=== PATIENT | male | born 1960 | race Caucasian/White ===

== ENCOUNTER 2021-11-07 15:34 | Outpatient (CLI) | payer BC, SELFPAY ==
[2021-11-07 16:24] LABS: Alanine Aminotransferase 40 U/L (6-50); Albumin Level 4.6 g/dL (3.5-5.1); Alkaline Phosphatase 65 U/L (38-126); Aspartate Amino Transferase 28 U/L (17-59); Bilirubin,Total 1.2 mg/dL (0.2-1.3)
[2021-11-07 16:27] LABS: Hemoglobin A1C 5.6 % (<5.7)
== END 2021-11-07 15:35 | disposition home or self-care (01) ==
LOC: ANHLAB 15:36
PROVIDERS: PCP Family Medicine; Visit Provider Podiatrist Foot & Ankle Surgery
DX: B35.1 Tinea unguium (principal); E11.49 Type 2 diabetes mellitus with other diabetic neurological complication
CPT/HCPCS: 36415; 80076; 83036

== ENCOUNTER 2022-02-20 15:53 | Outpatient (CLI) | payer BC, SELFPAY ==
[2022-02-20 16:44] LABS: Creatinine Urine 81.4 mg/dL
[2022-02-20 16:47] LABS: Alanine Aminotransferase 44 U/L (6-50); Albumin Level 4.3 g/dL (3.5-5.1); Alkaline Phosphatase 74 U/L (38-126); Anion Gap 8 mmol/L (8-16); Aspartate Amino Transferase 33 U/L (17-59); Bilirubin,Total 0.6 mg/dL (0.2-1.3); Blood Urea Nitrogen 18 mg/dL (9-20); Carbon Dioxide 27 mmol/L (22-30); Chloride 104 mmol/L (98-107); Cholesterol 144 mg/dL (0-200); Estimated Glomerular Filt Rate > 60; Glucose 161 mg/dL (65-110); HDL Direct 53 mg/dL; Sodium 139 mmol/L (137-145); Triglycerides 269 mg/dL (<150)
[2022-02-20 16:49] LABS: MALB Creatinine Ratio 14.1 mg/g (0-30); Microalbumin Urine Random 11.5 mg/L (0-16.7)
[2022-02-20 16:58] LABS: LDL Cholesterol Direct 65 mg/dL
[2022-02-20 17:36] LABS: Hemoglobin A1C 5.8 % (<5.7)
== END 2022-02-20 15:54 | disposition home or self-care (01) ==
LOC: ANHLAB 15:58
PROVIDERS: PCP Family Medicine; Visit Provider Family Medicine
DX: E11.40 Type 2 diabetes mellitus with diabetic neuropathy, unspecified (principal); E78.5 Hyperlipidemia, unspecified
CPT/HCPCS: 36415; 80053; 80061; 82043; 83036

== ENCOUNTER 2022-04-24 15:07 | Outpatient (CLI) | payer BC, SELFPAY ==
[2022-04-24 16:05] LABS: Alanine Aminotransferase 43 U/L (6-50); Albumin Level 4.8 g/dL (3.5-5.1); Alkaline Phosphatase 63 U/L (38-126); Anion Gap 5 mmol/L (8-16); Aspartate Amino Transferase 39 U/L (17-59); Bilirubin,Total 1.3 mg/dL (0.2-1.3); Blood Urea Nitrogen 16 mg/dL (9-20); Calcium 9.1 mg/dL (8.4-10.2); Carbon Dioxide 31 mmol/L (22-30); Chloride 100 mmol/L (98-107); Cholesterol 163 mg/dL (0-200); Estimated Glomerular Filt Rate > 60; Glucose 77 mg/dL (65-110); HDL Direct 62 mg/dL; Potassium 3.8 mmol/L (3.4-5.0); Sodium 136 mmol/L (137-145); Triglycerides 175 mg/dL (<150)
[2022-04-24 16:15] LABS: LDL Cholesterol Direct 70 mg/dL
[2022-04-24 16:23] LABS: Creatinine Urine 109.4 mg/dL
[2022-04-24 16:27] LABS: MALB Creatinine Ratio 9.3 mg/g (0-30); Microalbumin Urine Random 10.2 mg/L (0-16.7)
[2022-04-24 16:48] LABS: Hemoglobin A1C 6.2 % (<5.7)
== END 2022-04-24 15:08 | disposition home or self-care (01) ==
LOC: ANHLAB 15:12
PROVIDERS: PCP Family Medicine; Visit Provider Family Medicine
DX: E11.40 Type 2 diabetes mellitus with diabetic neuropathy, unspecified (principal); E78.5 Hyperlipidemia, unspecified; I10 Essential (primary) hypertension
CPT/HCPCS: 36415; 80053; 80061; 82043; 83036

== ENCOUNTER 2022-08-31 15:01 | Outpatient (CLI) | payer BC, SELFPAY ==
[2022-08-31 15:32] LABS: Alanine Aminotransferase 45 U/L (6-50); Albumin Level 4.4 g/dL (3.5-5.1); Alkaline Phosphatase 63 U/L (38-126); Anion Gap 8 mmol/L (8-16); Aspartate Amino Transferase 30 U/L (17-59); Bilirubin,Total 1.1 mg/dL (0.2-1.3); Blood Urea Nitrogen 18 mg/dL (9-20); Carbon Dioxide 25 mmol/L (22-30); Chloride 106 mmol/L (98-107); Cholesterol 153 mg/dL (0-200); Estimated Glomerular Filt Rate > 60; Glucose 107 mg/dL (65-110); HDL Direct 60 mg/dL; Potassium 3.9 mmol/L (3.4-5.0); Sodium 139 mmol/L (137-145); Triglycerides 128 mg/dL (<150)
[2022-08-31 15:43] LABS: LDL Cholesterol Direct 70 mg/dL
[2022-08-31 15:48] LABS: Creatinine Urine 74.4 mg/dL
[2022-08-31 15:53] LABS: MALB Creatinine Ratio 13.7 mg/g (0-30); Microalbumin Urine Random 10.2 mg/L (0-16.7)
[2022-08-31 20:50] LABS: Hemoglobin A1C 6.3 % (<5.7)
== END 2022-08-31 15:02 | disposition home or self-care (01) ==
LOC: ANHLAB 15:03
PROVIDERS: PCP Family Medicine; Visit Provider Family Medicine
DX: E11.40 Type 2 diabetes mellitus with diabetic neuropathy, unspecified (principal); E78.5 Hyperlipidemia, unspecified; I10 Essential (primary) hypertension
CPT/HCPCS: 36415; 80053; 80061; 82043; 83036

== ENCOUNTER 2022-11-27 15:04 | Outpatient (CLI) | payer BC, SELFPAY ==
[2022-11-27 16:12] LABS: Alanine Aminotransferase 42 U/L (6-50); Albumin Level 4.2 g/dL (3.5-5.1); Alkaline Phosphatase 61 U/L (38-126); Aspartate Amino Transferase 37 U/L (17-59); Bilirubin,Total 0.7 mg/dL (0.2-1.3)
== END 2022-11-27 15:05 | disposition home or self-care (01) ==
PROVIDERS: PCP Family Medicine; Visit Provider Podiatrist Foot & Ankle Surgery
DX: B35.1 Tinea unguium (principal)
CPT/HCPCS: 36415; 80076

== ENCOUNTER 2022-11-30 15:22 | Outpatient (CLI) | payer BC, SELFPAY ==
[2022-11-30 23:12] LABS: Hemoglobin A1C 5.8 % (<5.7)
== END 2022-11-30 15:23 | disposition home or self-care (01) ==
PROVIDERS: PCP Family Medicine; Visit Provider Podiatrist Foot & Ankle Surgery
DX: E11.9 Type 2 diabetes mellitus without complications (principal)
CPT/HCPCS: 36415; 83036

== ENCOUNTER 2023-01-01 15:24 | Outpatient (CLI) | payer BC, SELFPAY ==
[2023-01-01 17:10] LABS: Alanine Aminotransferase 41 U/L (6-50); Albumin Level 4.3 g/dL (3.5-5.1); Alkaline Phosphatase 54 U/L (38-126); Aspartate Amino Transferase 36 U/L (17-59); Bilirubin,Total 0.7 mg/dL (0.2-1.3)
== END 2023-01-01 15:25 | disposition home or self-care (01) ==
PROVIDERS: PCP Family Medicine; Visit Provider Podiatrist Foot & Ankle Surgery
DX: B35.1 Tinea unguium (principal)
CPT/HCPCS: 36415; 80076

== ENCOUNTER → 2023-05-25 10:41 | Outpatient (CLI) | payer BC, SELFPAY ==
--- NOTE | ~2023-05-25 | CT_ITS ---
Non-contrast Head CT History: Headache Technique: Axial non-contrast imaging of the brain was performed. Dose reduction technique was used on this scan by utilizing automated exposure control and iterative reconstruction technique. The dose -length product (DLP) was 599.57 mGy-cm. Findings: There is no evidence of intracranial hemorrhage, mass lesion, or acute infarct. Brain par enchyma appears normal. The ventricles and subarachnoid spaces are normal in size. The calvarium ap pears normal. The visualized paranasal sinuses and mastoid air cells are clear. Impression: No significant abnormality seen. Reviewed, dictated and finalized at location . WAY ADMINISTRATIVE ENGINEER Impression: No significant abnormality seen.
== END ==
PROVIDERS: PCP Family Medicine; Visit Provider Physician Assistant
DX: R51.9 Headache, unspecified (principal)
CPT/HCPCS: 70450

== ENCOUNTER 2023-12-31 15:01 | Outpatient (CLI) | payer BC, SELFPAY ==
[2023-12-31 16:03] LABS: Alanine Aminotransferase 39 U/L (6-50); Albumin Level 4.4 g/dL (3.5-5.1); Alkaline Phosphatase 60 U/L (38-126); Anion Gap 9 mmol/L (4-12); Aspartate Amino Transferase 35 U/L (17-59); Bilirubin,Total 1.1 mg/dL (0.2-1.3); Blood Urea Nitrogen 16 mg/dL (9-20); Calcium 9.4 mg/dL (8.4-10.2); Carbon Dioxide 26 mmol/L (22-30); Chloride 103 mmol/L (98-107); Cholesterol 142 mg/dL (0-200); Estimated Glomerular Filt Rate > 60; Glucose 131 mg/dL (65-110); HDL Direct 73 mg/dL; Potassium 3.9 mmol/L (3.4-5.0); Sodium 138 mmol/L (137-145); Triglycerides 80 mg/dL (<150)
[2023-12-31 16:07] LABS: Creatinine Urine 56.1 mg/dL
[2023-12-31 16:11] LABS: MALB Creatinine Ratio 14.8 mg/g (0-30); Microalbumin Urine Random 8.3 mg/L (0-16.7)
[2023-12-31 16:13] LABS: LDL Cholesterol Direct 52 mg/dL
[2023-12-31 16:47] LABS: Hemoglobin A1C 6.3 % (<5.7)
== END 2023-12-31 15:02 | disposition home or self-care (01) ==
LOC: ANHLAB 15:03
PROVIDERS: PCP Family Medicine; Visit Provider Family Medicine
DX: E11.3299 Type 2 diabetes mellitus with mild nonproliferative diabetic retinopathy without macular edema, unspecified eye (principal); E78.2 Mixed hyperlipidemia; I10 Essential (primary) hypertension
CPT/HCPCS: 36415; 80053; 80061; 82043; 83036

== ENCOUNTER 2024-03-24 02:31 | Day surgery (SDC) | payer BC, SELFPAY ==
[2024-03-17 10:26] VITALS: BMI 28.7
[2024-03-24 07:16] VITALS: BP 137/70; PULSE 54; RESP 16; TEMP 36; O2SAT 99; BMI 28.6
[2024-03-24 07:27] LABS: Glucose Point of Care 135 mg/dl (65-105)
[2024-03-24] MEDS: LACTATED RINGERS 1,000 ML 150 ML IV CONT (07:31)
--- NOTE | 2024-03-24 08:23 | PM.IMHP ---
H&P: HPI History of Present Illness Date/Time: 03/24/24 08:23 Chief Complaint: History of colon polyps Narrative: The patient has a history of colonic polyps, the last colonoscopy was 5 years ago. 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 Type 2 diabetes mellitus with diabetic neuropathy, unspecified Surgical History Surgical History History of nasal surgery 2018 History of tonsillectomy and adenoidectomy 1970 Family History Family History Father Heart disease Mother Heart disease Grandparent Diabetes mellitus Hypertension Other Family history of coronary artery disease Social History Social History (Updated 01/04/24 @ 11:33 by Ashley Rebolledo MA) Smoking packs per day: 1 Smoking cigarettes per day: 20.0 Smoking status: Former smoker Tobacco type: cigarettes Second hand tobacco smoke exposure: No Smoking end date: 05/14/83 Alcohol intake: current Drinks per week: 7 Substance use: never Substance use type: does not use Do You Feel Safe in your Home?: Yes Lack of Transportation: No Lack of Food: Never True Current Housing: I Have Housing Concerned About Future Housing: No Difficulty Paying Gas/Electric Bills: No Difficulty Paying for Meds: No Currently Unemployed: No Education: Trade/Vocational Certificate Difficulty w/ Childcare or Family Care: No Living arrangements: with family Occupation/Education: occupation Gender identity (if verbalized by the patient): Male Sexual Orientation (if Verbalized by the Patient): Straight or Heterosexual Meds Home Medications and Allergies Home Medications Medication Instructions Recorded Confirmed Type melatonin 10 mg capsule 10 mg PO QHS 09/07/22 03/24/24 History kobhlhauacgq-ejwqklbv-kfikgb 1 tablet PO DAILY 09/07/22 03/24/24 History tablet (Multivitamin 50 Plus tablet) metformin 500 mg tablet See Rx Instructions .Route 11/26/23 03/24/24 Rx .COMPLEX #360 tabs atorvastatin 20 mg tablet See Rx Instructions .Route 01/04/24 03/24/24 Rx .COMPLEX #90 tabs dapagliflozin propanediol 10 mg 10 mg PO DAILY #90 tabs 01/04/24 03/24/24 Rx tablet (Farxiga) glipizide 5 mg tablet, extended See Rx Instructions .Route 01/04/24 03/24/24 Rx release 24 hr .COMPLEX #90 tabs lisinopril 10 mg tablet See Rx Instructions .Route 01/04/24 03/24/24 Rx .COMPLEX #90 tabs valerian root 500 mg capsule 1,000 mg PO QHS PRN Sleep 01/04/24 03/24/24 History Allergies Allergy/AdvReac Type Severity Reaction Status Date / Time No Known Allergies Allergy Verified 03/24/24 07:15 Vital Signs Vital Signs - 24 hr 03/24/24 07:16 Temperature 96.8 F L Pulse Rate 54 L Respiratory Rate 16 Blood Pressure 137/70 Pulse Oximetry 99 Oxygen Delivery Room Air Exam Const: General: cooperative and healthy appearing Resp: Effort & Inspection: normal respiratory effort and able to speak in complete sentences Auscultation: clear to auscultation bilaterally Cardio: Rate: regular rate Rhythm: regular rhythm GI: Inspection: normal to inspection GI Palp: No No hepatosplenomegaly present Auscultation: normal bowel sounds Rectal Exam: deferred Skin: General skin exam: normal color Psych: Appearance: grossly normal Mental Status: mental status grossly normal Assessment and Plan Assessment and plan (1) Personal history of colonic polyps: Code(s): Z86.010 - Personal history of colon polyps Status: Acute Plan The patient is deemed a good candidate for the procedure. Consent signed. Will proceed.
--- NOTE | 2024-03-24 08:26 | P.PNAN_ITS ---
Anes - Initial Pre Proc Eval Procedure: Operation Date: 03/24/24 08:30 Proposed Procedures p Screening Colonoscopy - Rubén Raymundo MD Date/Time: 03/24/24 08:26 Surgeon: Rubén Raymundo MD Pre Op Diagnosis: h/o colon polyps Pre Op Diagnosis: hx colon polyps Patient Data Age: 63 Gender: M Height: 1.83 m Weight: 95.9 kg Last Vital Signs Temp 36.0 C L 03/24/24 07:16 Pulse 54 L 03/24/24 07:16 Resp 16 03/24/24 07:16 BP 137/70 03/24/24 07:16 Pulse Ox 99 03/24/24 07:16 O2 Del Method Room Air 03/24/24 07:16 Allergies Allergy/AdvReac Type Severity Reaction Status Date / Time No Known Allergies Allergy Verified 03/24/24 07:15 Home Medications Medication Instructions Recorded Confirmed Type melatonin 10 mg capsule 10 mg PO QHS 09/07/22 03/24/24 History wvunvszpcmre-hwfgmzqk-ywbshw 1 tablet PO DAILY 09/07/22 03/24/24 History tablet (Multivitamin 50 Plus tablet) metformin 500 mg tablet See Rx Instructions .Route 11/26/23 03/24/24 Rx .COMPLEX #360 tabs atorvastatin 20 mg tablet See Rx Instructions .Route 01/04/24 03/24/24 Rx .COMPLEX #90 tabs dapagliflozin propanediol 10 mg 10 mg PO DAILY #90 tabs 01/04/24 03/24/24 Rx tablet (Farxiga) glipizide 5 mg tablet, extended See Rx Instructions .Route 01/04/24 03/24/24 Rx release 24 hr .COMPLEX #90 tabs lisinopril 10 mg tablet See Rx Instructions .Route 01/04/24 03/24/24 Rx .COMPLEX #90 tabs valerian root 500 mg capsule 1,000 mg PO QHS PRN Sleep 01/04/24 03/24/24 History Laboratory Tests 03/24/24 07:23 POC Capillary Glucose 135 H mg/dl (65-105) Patient hx anesthesia problems: none Family hx anesthesia problems: none Results Review: All pre-operative results and documents have been reviewed as part of the pre- operative evaluation. 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 Type 2 diabetes mellitus with diabetic neuropathy, unspecified Surgical History Surgical History History of nasal surgery 2018 History of tonsillectomy and adenoidectomy 1970 Family History Family History Father Heart disease Mother Heart disease Grandparent Diabetes mellitus Hypertension Other Family history of coronary artery disease Social History Social History Smoking packs per day: 1 Smoking cigarettes per day: 20.0 Smoking status: Former smoker Tobacco type: cigarettes Second hand tobacco smoke exposure: No Smoking end date: 05/14/83 Alcohol intake: current Drinks per week: 7 Substance use: never Substance use type: does not use Do You Feel Safe in your Home?: Yes Lack of Transportation: No Lack of Food: Never True Current Housing: I Have Housing Concerned About Future Housing: No Difficulty Paying Gas/Electric Bills: No Difficulty Paying for Meds: No Currently Unemployed: No Education: Trade/Vocational Certificate Difficulty w/ Childcare or Family Care: No Living arrangements: with family Occupation/Education: occupation Gender identity (if verbalized by the patient): Male Sexual Orientation (if Verbalized by the Patient): Straight or Heterosexual Anes - Eval Final PreProcedure Day of Procedure 03/24/24 08:26 Patient weight: overweight Heart: regular rate and rhythm Lungs: clear to auscultation Airway: Mallampati scale class II Neurological: alert and oriented Last oral intake: >/= 8 hours ASA classification: II Emergent: no Anesthetic plan: proceed Anesthesia type and monitoring: general GIVS and standard monitoring Results Review: All pre-operative results and documents have been reviewed as part of the pre- operative evaluation. Informed Consent: The patient's anesthetic plan and its attendant risks and benefits were discussed with the patient/family/POA. Questions were solicited and answers provided to the satisfaction of the patient/family/POA.
[2024-03-24 08:59] VITALS: BP 130/68; PULSE 58; RESP 19; O2SAT 99
[2024-03-24 09:09] VITALS: BP 125/93; PULSE 54; RESP 16; O2SAT 100
[2024-03-24 09:19] VITALS: BP 145/71; PULSE 52; RESP 20; O2SAT 100
== END 2024-03-24 09:28 | disposition home or self-care (01) ==
PROVIDERS: PCP Family Medicine; Visit Provider Internal Medicine Gastroenterology
PROC: 0DJD8ZZ Inspection of Lower Intestinal Tract, Via Natural or Artificial Opening Endoscopic (ICD-10-PCS; CPT 45378; principal; 2024-03-24 08:30)
DX: Z12.11 Encounter for screening for malignant neoplasm of colon (principal); D12.0 Benign neoplasm of cecum; D12.3 Benign neoplasm of transverse colon; D12.4 Benign neoplasm of descending colon; D12.5 Benign neoplasm of sigmoid colon; Z79.84 Long term (current) use of oral hypoglycemic drugs; E11.40 Type 2 diabetes mellitus with diabetic neuropathy, unspecified; E11.319 Type 2 diabetes mellitus with unspecified diabetic retinopathy without macular edema; I10 Essential (primary) hypertension; E78.5 Hyperlipidemia, unspecified; Z87.891 Personal history of nicotine dependence
CPT/HCPCS: 45385; 82948; 88305; J2003; J2704; J7120

== ENCOUNTER 2024-12-01 15:17 | Outpatient (CLI) | payer BC, SELFPAY ==
--- OUTSIDE RECORDS SUMMARY | 2024-12-01 15:21 | XMS_ITS | Patient Health Record ---
Author Organization [facility] Address [address] [place], [place] [id number] Care Team Providers Care Dimensional Inspector Name Role Phone MAIKEL PARISH Unavailable [phone] Marily Maikel Unavailable Unavailable Allergies No Known Allergies Reason For Referral No Information Medications Medication SIG (Take, Route, Frequency, Duration) Notes Start Date End Date Status Melatonin 10 MG Oral Capsule ORAL melatonin 10 MG Oral CapsuleOriginal Medicationmelatonin 10 MG Oral Capsule *Reorder from [employer] for eRx and Interaction Alerts* 0 Active diphenhydramine hydrochloride 50 MG Oral Capsule ORAL diphenhydramine hydrochlorid e 50 MG Oral CapsuleOriginal Medicationdiphenhydramine hydrochloride 50 MG Oral Capsule *Reorder from [employer] for eRx and Interaction Alerts* 0 Active Medrol Dosepak ORAL Medrol DosepakOr iginal MedicationMedrol Dosepak *Reorder from [employer] for eRx and Interaction Alerts* 0 Active terbinafine 250 MG Oral Tablet ORAL terbinafine 250 MG Oral TabletOriginal Medicationterbinafine 250 MG Oral Tablet *Reorder from [employer] for eRx and Interaction Alerts* 2 Active Ciclopirox 8 % APPLY 1-2 DROPS TOPICALLY TO NAILS DAILY; Duration: 30 Active Vital Signs Height-cm 182.88 cm 10/27/2024 Weight-kg 102.06 kg 10/27/2024 Height 72.00 in 10/27/2024 Weight 225 lbs 10/27/2024 BMI 30.51 kg/m2 10/27/2024 Encounters Encounter Location Date Provider Diagnosis [facility] [place] [address] [place] [address] [id number] 12/03/2023 MAIKEL SNOOK Pain in left ankle a nd joints of left foot M25.572 ; Primary osteoarthritis, left ankle and foot M19.072 ; Tinea unguium B35.1 ; Other hammer toe(s) (acquired), left foot M20.42 and Acquired keratosis [keratoderma] palmaris et plantaris L85.1 [facility] [place] [address] [place] [address] [id number] 04/14/2024 MAIKEL SNOOK Pain in left ankle a nd joints of left foot M25.572 ; Primary osteoarthritis, left ankle and foot M19.072 ; Other hammer toe(s) (acquired), left foot M20.42 ; Acquired keratosis [keratoderma] palmaris et plantaris L85.1 and Plantar fascial fibromatosis M72.2 [facility] [address] [place] [address] [id number] 10/27/2024 MAIKEL SNOOK Primary osteoarthritis, left ankle and foot M19.072 ; Pain in left ankle and joints of left foot M25.572 and Acquired keratosis [keratoderma] palmaris et plantaris L85.1 Assessments Encounter Date Diagnosis (ICD Code) Assessment Notes Treatment Notes Treatment Clinical Notes Section Notes 12/03/2023 Primary osteoarthritis, left ankle and foot (ICD-10 - M19.072) 12/03/2023 Pain in left ankle and joints of left foot (ICD-10 - M25.572) Sinus Tarsi Syndrome: I discussed anti-inflammatory treatment options and various means of immobilization with the patient. I educated the patient on icing and stretching, supportive shoegear, and the use of orthotic devices and bracing. Kenalog Injection: Following skin prep, a total of 3 ccs of a 1-1-1 mix of 0.5% marcaine plain, 1% lidocaine plain, and Kenalog was injected to the left sinus tarsi. Orthotic Continue: Advised patient to continue to wear orthotic devices. 04/14/2024 Primary osteoarthritis, left ankle and foot (ICD-10 - M19.072) 04/14/2024 Pain in left ankle and joints of left foot (ICD-10 - M25.572) Sinus Tarsi Syndrome: I discussed anti-inflammatory treatment options and various means of immobilization with the patient. I educated the patient on icing and stretching, supportive shoegear, and the use of orthotic devices and bracing. Kenalog Injection: Following skin prep, a total of 3 ccs of a 1-1-1 mix of 0.5% marcaine plain, 1% lidocaine plain, and Kenalog was injected to the left sinus tarsi. Orthotic Continue: Advised patient to continue to wear orthotic devices. 10/27/2024 Primary osteoarthritis, left ankle and foot (ICD-10 - M19.072) 10/27/2024 Pain in left ankle and joints of left foot (ICD-10 - M25.572) Sinus Tarsi Syndrome: I discussed anti-inflammatory treatment options and various means of immobilization with the patient. I educated the patient on icing and stretching, supportive shoegear, and the use of orthotic devices and bracing. Kenalog Injection: Following skin prep, a total of 3 ccs of a 1-1-1 mix of 0.5% marcaine plain, 1% lidocaine plain, and Kenalog was injected to the left sinus tarsi. Orthotic Continue: Advised patient to continue to wear orthotic devices. 04/14/2024 Other hammer toe(s) (acquired), left foot (ICD-10 - M20.42) Hammertoe Deformity: Discussed various treatments for hammer toes with the patient . Discussed conservative care consisting of padding, wider shoes, anti-inflammatorie s, and orthotics. Discussed surgical treatment options and answered all questions about the intra-operative and post-operative treatment course. 12/03/2023 Tinea unguium (ICD-10 - B35.1) FUNGAL TOENAILS: Discussed various treatment options for fungal toenails including debridement, topical antifungals, oral antifungals, toenail avulsion, or toenail matrixectomy. NAIL DEBRIDEMENT: Nails 1-5 Bilateral were debrided extensively with nail nippers and emery board, reducing length and girth to pink healthy tissue with any subungual debris and necrotic tissue removed 12/03/2023 Other hammer toe(s) (acquired), left foot (ICD-10 - M20.42) Hammertoe Deformity: Discussed various treatments for hammer toes with the patient . Discussed conservative care consisting of padding, wider shoes, anti-inflammatorie s, and orthotics. Discussed surgical treatment options and answered all questions about the intra-operative and post-operative treatment course. 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 10/27/2024 Acquired keratosis [keratoderma] palmaris et plantaris (ICD-10 - L85.1) Emollient: Recommend that the patient use an emollient such as dckl-ntd-khlzzgt Eucerin cream, Vanicream, or other lotion to the affected area. 04/14/2024 Plantar fascial fibromatosis (ICD-10 - M72.2) Plantar Fascitis: I discussed anti-inflammatory treatment options and various means of pronation control with the patient. I educated the patient on icing and stretching, supportive shoegear, and the use of orthotic devices. Kenalog Injection: Following skin prep, a total of 3 ccs of a 1-1-1 mix of 0.5% marcaine plain, 1% lidocaine plain, and Kenalog was injected to the left and right heel 12/03/2023 Acquired keratosis [keratoderma] palmaris et plantaris (ICD-10 - L85.1) Emollient: Recommend that the patient use an emollient such as gfuz-znh-lwmktht Eucerin cream, Vanicream, or other lotion to the affected area. Plan Of Treatment Pending Test Test Name Order Date Hemoglobin A1c 11/27/2022 Liver Function Test (LFT) 01/01/2023 Liver Function Test (LFT) 11/27/2022 Insurance Providers Payer Name Payer Address Payer Phone Subscriber Number Group Number Insured Name Patient Relationship to Insured Coverage Start Date Coverage End Date [facility] ([facility]) ATTN CLAIMS [address] [place] [address] [id number] EDUARDO MORENO Self - patient is the insured
[2024-12-01 16:16] LABS: Alanine Aminotransferase 36 U/L (6-50); Albumin Level 4.2 g/dL (3.5-5.1); Alkaline Phosphatase 67 U/L (38-126); Anion Gap 10 mmol/L (4-12); Aspartate Amino Transferase 35 U/L (17-59); Bilirubin,Total 0.9 mg/dL (0.2-1.3); Blood Urea Nitrogen 15 mg/dL (9-20); Calcium 9.3 mg/dL (8.4-10.2); Carbon Dioxide 23 mmol/L (22-30); Chloride 104 mmol/L (98-107); Cholesterol 125 mg/dL (0-200); Estimated Glomerular Filt Rate > 60; Glucose 167 mg/dL (65-110); HDL Direct 60 mg/dL; Potassium 4.2 mmol/L (3.4-5.0); Sodium 137 mmol/L (137-145); Total Protein 7.0 g/dL (6.3-8.2); Triglycerides 232 mg/dL (<150)
[2024-12-01 16:23] LABS: Hemoglobin A1C 6.6 % (<5.7)
== END 2024-12-01 15:18 | disposition home or self-care (01) ==
PROVIDERS: PCP Family Medicine; Visit Provider Family Medicine
DX: E11.40 Type 2 diabetes mellitus with diabetic neuropathy, unspecified (principal); I10 Essential (primary) hypertension; E78.2 Mixed hyperlipidemia
CPT/HCPCS: 36415; 80053; 80061; 83036

== ENCOUNTER 2025-01-02 14:57 | Outpatient (CLI) | payer BC, SELFPAY ==
--- OUTSIDE RECORDS SUMMARY | 2025-01-02 15:01 | XMS_ITS | Patient Health Record ---
Author Organization [facility] Address [address] [place], [place] [id number] Care Team Providers Care Raw Material Handler Name Role Phone MAIKEL PARISH Unavailable [phone] Marily Maikel Unavailable Unavailable Allergies No Known Allergies Reason For Referral No Information Medications Medication SIG (Take, Route, Frequency, Duration) Notes Start Date End Date Status Melatonin 10 MG Oral Capsule ORAL melatonin 10 MG Oral CapsuleOriginal Medicationmelatonin 10 MG Oral Capsule *Reorder from [employer] for eRx and Interaction Alerts* 0 Active diphenhydramine hydrochloride 50 MG Oral Capsule ORAL diphenhydramine hydrochlorid e 50 MG Oral CapsuleOriginal Medicationdiphenhydramine hydrochloride 50 MG Oral Capsule *Reorder from [employer] for eRx and Interaction Alerts* 0 Active Medrol Dosepak ORAL Medrol DosepakOr iginal MedicationMedrol Dosepak *Reorder from [employer] for eRx and Interaction Alerts* 0 Active terbinafine 250 MG Oral Tablet ORAL terbinafine 250 MG Oral TabletOriginal Medicationterbinafine 250 MG Oral Tablet *Reorder from [employer] for eRx and Interaction Alerts* 2 Active Ciclopirox 8 % APPLY 1-2 DROPS TOPICALLY TO NAILS DAILY; Duration: 30 Active Vital Signs Height-cm 182.88 cm 10/27/2024 Weight-kg 102.06 kg 10/27/2024 Height 72.00 in 10/27/2024 Weight 225 lbs 10/27/2024 BMI 30.51 kg/m2 10/27/2024 Encounters Encounter Location Date Provider Diagnosis [facility] [place] [address] [place] [address] [id number] 04/14/2024 MAIKEL SNOOK Pain in left ankle a nd joints of left foot M25.572 ; Primary osteoarthritis, left ankle and foot M19.072 ; Other hammer toe(s) (acquired), left foot M20.42 ; Acquired keratosis [keratoderma] palmaris et plantaris L85.1 and Plantar fascial fibromatosis M72.2 [facility] [place] [address] [place] [address] [id number] 10/27/2024 MAIKEL SNOOK Primary osteoarthritis, left ankle and foot M19.072 ; Pain in left ankle and joints of left foot M25.572 and Acquired keratosis [keratoderma] palmaris et plantaris L85.1 Assessments Encounter Date Diagnosis (ICD Code) Assessment Notes Treatment Notes Treatment Clinical Notes Section Notes 04/14/2024 Primary osteoarthritis, left ankle and foot [...] the patient use an emollient such as rqzv-jnc-emaianr Eucerin cream, Vanicream, or other lotion to the affected area. 10/27/2024 Acquired keratosis [keratoderma] palmaris et plantaris (ICD-10 - L85.1) Emollient: Recommend that the patient use an emollient such as rskf-swu-hztdqya Eucerin cream, Vanicream, or other lotion to [...] injected to the left and right heel Plan Of Treatment Pending Test Test Name Order Date Hemoglobin A1c 11/27/2022 Liver Function Test (LFT) 01/01/2023 Liver Function Test (LFT) 11/27/2022 Insurance Providers Payer Name Payer Address Payer Phone Subscriber Number Group Number Insured Name Patient Relationship to Insured Coverage Start Date Coverage End Date [facility] ([facility]) ATTN CLAIMS [address] [place] [address] [id number] EDUARDO MORENO Self - patient is the insured
[2025-01-02 15:49] LABS: Alanine Aminotransferase 29 U/L (6-50); Albumin Level 4.4 g/dL (3.5-5.1); Alkaline Phosphatase 57 U/L (38-126); Aspartate Amino Transferase 34 U/L (17-59); Bilirubin,Total 1.0 mg/dL (0.2-1.3); Total Protein 7.0 g/dL (6.3-8.2)
== END 2025-01-02 14:58 | disposition home or self-care (01) ==
PROVIDERS: PCP Family Medicine
DX: Z79.01 Long term (current) use of anticoagulants (principal)
CPT/HCPCS: 36415; 80076